=== PATIENT | male | born 2000 | race African-American/Black ===

== ENCOUNTER 2019-03-28 08:08 | Emergency (ER) | payer MEDICAID ==
[~2019-03-28] VITALS: Ht 175.3 cm; Wt 73.0 kg
[2019-03-28] MEDS ORDERED: IBUPROFEN 800MG TABLET PO ONE (09:00)
[2019-03-28 09:01] VITALS: BP 138/75
== END 2019-03-28 09:40 | disposition home or self-care (01) ==
LOC: ER 08:08
DX: S10.93XA Contusion of unspecified part of neck, initial encounter (principal); S30.0XXA Contusion of lower back and pelvis, initial encounter; J45.909 Unspecified asthma, uncomplicated; F12.10 Cannabis abuse, uncomplicated; V43.52XA Car driver injured in collision with other type car in traffic accident, initial encounter; Y93.89 Activity, other specified; Y92.488 Other paved roadways as the place of occurrence of the external cause
CPT/HCPCS: 99283